=== PATIENT | male | born 1965 | race Caucasian/White ===

== ENCOUNTER 2017-06-07 07:46 | Day surgery (SDC) | payer OTHER ==
[2017-06-03 08:34] VITALS: BMI 25.7
[2017-06-07 08:02] VITALS: TEMP 97.5
--- NOTE | 2017-06-07 09:17 | HP ---
History & Physical Update - History History: No Change - Physical Physical: No Change - Assessment Assessment: No Change - Plan Plan: No Change (Patrient is for laparoscopic repair of bilateral inguinal herniae, with mesh , possibke open. Consent obtained. Risks, benefits and complications, were explained, including recurrence, chronic pain.)
[2017-06-07] MEDS ORDERED: PROPOFOL 20 ML ONE ×3 (09:42→10:12)
[2017-06-07] MEDS ORDERED: ceFAZolin SODIUM 1 GM VIAL ONE (10:11)
[2017-06-07] MEDS ORDERED: MIDAZOLAM HCL 2 MG/2 ML SINGLE DOSE VIAL ONE (10:12)
[2017-06-07] MEDS ORDERED: IBUPROFEN 800 MG/8 ML IJ IVPB ONE (10:17)
[2017-06-07] MEDS ORDERED: SEVOFLURANE 250 ML BTL ONE (10:17)
[2017-06-07] MEDS ORDERED: ceFAZolin SODIUM 1 GM VIAL IVPB ONE (10:45)
[2017-06-07] MEDS ORDERED: VECURONIUM BROMIDE 10 MG VIAL ONE (11:21)
[2017-06-07] MEDS ORDERED: DEXAMETHASONE SOD PHOSPHATE 4 MG/1 ML VIAL ONE (11:38)
[2017-06-07] MEDS ORDERED: BUPIVACAINE HCL/PF 0.5% (5MG/ML) 10 ML VIAL ONE (12:42)
[2017-06-07] MEDS ORDERED: NEOSTIGMINE METHYLSULFATE 0.5 MG/ML - 10 ML MDV ONE (12:49)
[2017-06-07] MEDS ORDERED: GLYCOPYRROLATE 0.2 MG/1 ML VIAL ONE ×2 (12:49→12:51)
--- NOTE | 2017-06-07 13:07 | OP ---
Operative Note - Note: Operative Date: 06/07/17 Pre-Operative Diagnosis: Bilateral inguinal hernia, left indirect. Operation: Laparoscopic reair of bilateral inguinal herniae. Large indirecr scar on the left. Findings: Left indirect inguinal hernia, with sac, right direct inguinal hernia Implants: Bilateral mesh , 3D max mesh placed, large size. Post-Operative Diagnosis: Same as Pre-op Surgeon: Rafa Jackson Equipment Operator [employer] Yard: Ibrahima Banks Anesthesiologist/GROUND INSTRUCTOR BASIC: Tami Aguilar Specimens Removed: None Estimated Blood Loss (mls): 5 Operative Report Dictated: Yes
[2017-06-07] MEDS ORDERED: ONDANSETRON 4 MG/2 ML VIAL IVPUSH PRN (13:09)
[2017-06-07] MEDS ORDERED: oxyCODONE HCL 5 MG TABLET PO PRN (13:09)
[2017-06-07] MEDS ORDERED: LACTATED RINGERS SOLUTION 1,000 ML IV SCH (13:15)
[2017-06-07] MEDS ORDERED: oxyCODONE HCL 5 MG TABLET ONE (14:52)
[2017-06-07 16:36] VITALS: BP 121/77; PULSE 54
--- NOTE | 2017-06-10 10:30 | OP ---
DATE OF OPERATION: 06/07/2017 PREOPERATIVE DIAGNOSIS: Bilateral inguinal hernias, the left larger than right, the left being indirect and the right being a direct hernia. POSTOPERATIVE DIAGNOSIS: Bilateral inguinal hernia, the left larger than right, the left being indirect and the right being a direct hernia. OPERATIVE PROCEDURE: Laparoscopic repair of bilateral inguinal hernias with mesh. SURGEON: Florencio Jackson MD CLIENT EVALUATOR: Ibrahima Banks MD ANESTHESIA: General anesthesia. OPERATIVE DESCRIPTION: This 52-year-old man presented with a large swelling in the left groin with gurgling sounds. On examination, he was found to have a large indirect inguinal hernia as well as a direct right inguinal hernia. He was brought in for repair of both hernias laparoscopically, possibly open. Consent was obtained. Risks, benefits, and complications were discussed with the patient. Patient was given general anesthesia. He was given a gram of Ancef. The lower abdomen was painted and draped. A Aranda catheter was placed in the bladder. This was removed right after the surgery. A time-out was called. An incision was made about 1 to 2 fingerbreadths below the umbilicus in a horizontal fashion across the abdomen. It was deepened through the skin and subcutaneous fat and the anterior rectus sheath on both sides of the midline. The peritoneum was then identified in the midline, and space was created between the posterior rectus sheath and the peritoneum. The was then carried down all the way to the pubic symphysis. A 10-mm trocar with a dilator and a balloon was then introduced through this defect and down all the way to the pubic symphysis. The balloon was inflated to create a preperitoneal space. Once this was done, the balloon was removed, and the 10-mm trocar with the balloon at the other end was then inserted into the space. The balloon was inflated and the space was created, being a closed space. This was inflated with carbon dioxide at 6 L per minute with excellent intraabdominal pressure of 15 mmHg. A 5-mm, 30-degree camera was introduced through the space and the anatomy was identified. There was noted to be a hole in the peritoneum. The pubic symphysis and the pubic bone were identified on either side of the midline. Two 5-mm trocars were then inserted into the space about 2 fingerbreadths below the 10-mm trocar and about 2 cm from either side of the midline. These were noted entering the preperitoneal space on either side and with camera. Once this was placed, by gentle blunt dissection using the Endo Peanut, the pubic symphysis and the pubic bone on either side were very well defined. This was carried laterally along the anterior abdominal wall, all the way past the internal ring on either side. Prior to this, the pubic tubercle, anterior-superior iliac spine and the anterior abdominal wall were defined and marked with a marker. Attention was then carried to the anterior abdominal wall. With blunt dissection, a loose area of tissue was removed from the anterior abdominal wall and pulled back. The Harmonic scalpel was used when it was required. The peritoneum was thus pulled down from the pelvis as well as the lower abdominal wall and pulled cephalad. First, the right inguinal hernia was exposed. It was a direct hernia. The cord structures were identified going into the internal ring. These were . There was no indirect sac going into the internal ring. This was just barely getting to the internal ring. This was pulled back with blunt dissection to the abdominal wall. There was a direct hernia dividing the internal ring. Then, the left groin was attended to. Similarly, with blunt dissection, the cord structures were . There was a large indirect sac which went all the way down into the scrotum. This was pulled into the abdominal cavity all the way, twisted and retracted proximally. Once this was done, the posterior abdominal wall was very well defined. The rest of the cord structures were normal. A large 3DMax mesh was then rolled in and inserted through the 10-mm port, all the way down to the pubic symphysis with the letter "M" facing medially and looking towards the camera. This was then unfolded laterally. Once this was done, the mesh was anchored over the pubic crest with a metallic tacker with the letter "M" facing the camera and the facing cephalad. As soon as this was done, the mesh was unrolled laterally. The cords to the sac were pulled away posteriorly. This was again anchored laterally with the AbsorbaTack tack sutures, thus covering the posterior inguinal canal and posterior wall of the inguinal canal. A similar procedure was done on the right side by introducing a right-sided 3DMax mesh, rolled in and introduced towards the pubic symphysis with the letter "M" being medial. This was also anchored over the pubic crest with the metallic tacker and over laterally to guard the posterior wall of the inguinal canal. This was anchored laterally to the transverse abdominis internal oblique muscle with the AbsorbaTack tacking device. The mesh covered the defect bilaterally. The sac was then twisted and rolled all the way and anchored laterally to the lateral abdominal wall with the AbsorbaTack tacking device. The repair was adequate, the mesh was placed properly, and the indirect sac was completely twisted and attached laterally to prevent any bowels from herniating. Hemostasis was satisfactory. The abdomen was then carefully deflated to hold the mesh against the anterior abdominal wall, and the instruments were withdrawn under direct vision. Then, the anterior rectus sheath in the infraumbilical incision was approximated with interrupted 2-0 Vicryl sutures. Skin was approximated by interrupted 4-0 Monocryl sutures. The estimated blood loss was less than 5 mL. Sponge count and instrument count were correct. Dermabond was applied to close the skin edges. Aranda catheter was then removed. Patient tolerated the procedure well and was extubated and sent to the recovery room in satisfactory and stable condition. Rajan [id number]
== END 2017-06-07 15:45 | disposition home or self-care (01) ==
LOC: JASU-SURG 07:46
PROVIDERS: ATTEND Specialist
PROC: 0YUA4JZ Supplement Bilateral Inguinal Region with Synthetic Substitute, Percutaneous Endoscopic Approach (ICD-10-PCS; principal; 2017-06-07 09:30)
DX: K40.20 Bilateral inguinal hernia, without obstruction or gangrene, not specified as recurrent (principal)
CPT/HCPCS: 94760

== ENCOUNTER 2019-11-26 15:08 | Emergency (ER) | payer OTHER ==
--- NOTE | 2019-11-26 15:14 | PDOC ---
Rapid Medical Evaluation Time Seen by Provider: 11/26/19 15:11 Medical Evaluation: Allergies Allergy/AdvReac Type Severity Reaction Status Date / Time No Known Allergies Allergy Verified 06/07/17 08:08 11/26/19 15:12 I performed a brief in-person evaluation of this patient. 54-year-old male smoker with about 3 days of right lateral thigh abscess, now draining. No fevers/chills. Mild surrounding erythema. Pertinent physical exam findings: Alert, oriented, no distress. Bearing weight. Fluctuant collection draining blood and pus, mild surrounding erythema. I have ordered the following: None Patient to proceed to FT for further evaluation: Discharge Disposition - Diagnosis Abscess - Referrals - Patient Instructions - Post Discharge Activity
[2019-11-26 15:22] VITALS: BP 135/86; PULSE 77; TEMP 98.4; BMI 25.7
[2019-11-26] MEDS ORDERED: DOXYCYCLINE HYCLATE 100 MG CAPSULE PO ONE ×2 (15:40→15:46)
--- NOTE | 2019-11-26 15:46 | PDOC ---
History of Present Illness - General Chief Complaint: Wound Stated Complaint: ABSCESS Time Seen by Provider: 11/26/19 15:11 History Source: Patient, Friend Exam Limitations: No Limitations - History of Present Illness Initial Comments: 11/26/19 15:48 Patient is a 54-year-old male with no past medical history who presents to the ED with an abscess to his right lateral thigh. He states he has had the abscess for several weeks and a few days ago it opened on its own and began draining. He has been cleaning it daily. He denies any fevers or chills. He denies any other complaints. Past History - Past Medical History Allergies/Adverse Reactions: Allergies Allergy/AdvReac Type Severity Reaction Status Date / Time No Known Allergies Allergy Verified 06/07/17 08:08 Home Medications: Ambulatory Orders Ibuprofen [Motrin -] 400 mg PO TID #21 tablet 06/07/17 Oxycodone HCl/Acetaminophen [Percocet 5-325 mg Tablet -] 1 tab PO Q6H PRN #20 tablet MDD 4 06/07/17 Doxycycline Hyclate 100 mg PO BID 10 Days #20 tablet 11/26/19 COPD: No - Surgical History Orthopedic Surgery: Yes (Left knee arthroscopy 1994) - Immunization History Immunization Up to Date: No - Psycho Social/Smoking Cessation Hx Smoking History: Current every day smoker Have you smoked in the past 12 months: Yes Number of Cigarettes Smoked Daily: 10 Information on smoking cessation initiated: No 'Breaking Loose' booklet given: 06/07/17 Hx Alcohol Use: No Drug/Substance Use Hx: No Substance Use Type: None Hx Substance Use Treatment: No Review of Systems - Review of Systems Comments:: 11/26/19 15:49 - Review of Systems Able to Perform ROS?: Yes Constitutional: No: Fever, Chills, Loss of Appetite, Night Sweats, Weakness Respiratory: No: Cough, Shortness of Breath, Wheezing, Sputum Production Cardiac (ROS): No: Chest Pain, Chest Tightness, Palpitations, Irregular Heart Beat, Edema ABD/GI: No: Nausea, Vomiting, Abdominal Pain, Diarrhea : No Dysuria, No Hematuria, No Frequency, No Urgency Musculoskeletal: No: Muscle Pain, Back Pain, Joint Pain, Muscle Weakness, Neck Pain Integumentary: No: Lesions, Rash; abscess to the R lateral thigh Neurological: No: Headache, Numbness, Tingling, Weakness, Speech Difficulties *Physical Exam - Vital Signs Last Vital Signs Temp Pulse Resp BP Pulse Ox 98.4 F 77 16 135/86 95 11/26/19 15:13 11/26/19 15:13 11/26/19 15:13 11/26/19 15:13 11/26/19 15:13 - Physical Exam 11/26/19 15:49 - Physical Exam General Appearance: Nourished, Appropriately Dressed, No Distress Neck: Supple, No Lymphadenopathy (R), No Lymphadenopathy (L), No Rigidity, No Decreased range of motion Respiratory/Chest: Lungs Clear, Normal Breath Sounds. No Respiratory Distress, No Accessory Muscle Use Cardiovascular: Regular Rhythm, Regular Rate, S1, S2 Gastrointestinal/Abdominal: Normal Bowel Sounds, Soft. Non-tender, No Guarding , No Rebound, No Rigidity Musculoskeletal: Normal Inspection. No Decreased Range of Motion Extremity: Normal Capillary Refill, Normal Inspection Integumentary: Normal Color, Dry. No Rash; There is a 3x2 area of open lesion to the lateral thigh. There is surround erythema without streaking. The erythema is in the same pattern as the 4x4 gauze the patient had on his thigh. There is no purulent drainage. There is granulation tissue appreciated. No foul odor appreciated. Moderate tenderness to palpation appreciated. Neurologic: podiatric surgeon II-XII NML intact, Fully Oriented, Alert, Normal Mood/Affect, Normal Response Medical Decision Making - Medical Decision Making 11/26/19 15:41 The patient's wound is already draining and there is granulation tissue appreciated. The wound was cleaned with a saline/peroxide combination and bandaged with a sterile gauze. Gauze has been given to the patient to continue dressing changes at home. We will refer the patient to wound care for further evaluation and treatment. A dose of doxycycline was given to the patient in the ED and we will discharge him with a 10-day course of the antibiotic as well. He understands and agrees with this treatment and plan he is stable for discharge. Discharge - Discharge Information Problems reviewed: Yes Clinical Impression/Diagnosis: Abscess, Abscess of right thigh Condition: Stable Disposition: HOME - Additional Discharge Information Prescriptions: Doxycycline Hyclate 100 mg PO BID 10 Days #20 tablet - Follow up/Referral Referrals: Cameron Abad MD [Primary Care Provider] - Jose Alfredo Kim DO [Staff Physician] - 2 Days - Patient Discharge Instructions Patient Printed Discharge Instructions: DI for Skin Abscess Additional Instructions: Your abscess is already open and draining. You should keep the area clean and wash it daily with warm water and soap. Allow it to dry for at least 30 minutes before covering. You should follow-up with wound care and the referral has been given to you. Return to the emergency department for high fevers, shaking chills, red streaking, worsening cellulitis, profuse vomiting or any other worsening symptoms. - Post Discharge Activity Work/Back to School Note: Back to Work
== END 2019-11-26 15:50 | disposition home or self-care (01) ==
LOC: JERFT 15:08
DX: L02.415 Cutaneous abscess of right lower limb (principal); F17.210 Nicotine dependence, cigarettes, uncomplicated
CPT/HCPCS: 99281-25